=== PATIENT | female | born 1980 | race Caucasian/White ===

== ENCOUNTER 2021-02-24 15:57 | Outpatient (CLI) | payer BC | END 2021-02-24 15:58 | disposition home or self-care (01) | LOC: CTENTCT 15:57 | PROVIDERS: ATTEND Otolaryngology Plastic Surgery within the Head & Neck | DX: J32.9 Chronic sinusitis, unspecified (principal) | CPT/HCPCS: 70486 ==

== ENCOUNTER 2021-04-08 14:51 | Outpatient (CLI) | payer BC ==
[2021-04-08 15:50] LABS: BHCG - Serum Negative (NEGATIVE); Pregs Control Background? CLEAR/WHITE (CLR/WHITE); Pregs Control Bar Appear? YES (CONTROL BAR)
[2021-04-09 00:20] LABS: SARS-CoV-2 PCR by NAA Not Detected (NotDetected)
== END 2021-04-08 14:52 | disposition home or self-care (01) ==
LOC: LABBT 14:51
PROVIDERS: ATTEND Otolaryngology Plastic Surgery within the Head & Neck
DX: Z01.818 Encounter for other preprocedural examination (principal); J32.9 Chronic sinusitis, unspecified; J34.2 Deviated nasal septum; J34.89 Other specified disorders of nose and nasal sinuses; J30.9 Allergic rhinitis, unspecified; J34.3 Hypertrophy of nasal turbinates; Z20.822 Contact with and (suspected) exposure to COVID-19
CPT/HCPCS: 84703; 85014; U0003; U0005

== ENCOUNTER 2021-04-13 08:34 | Day surgery (SDC) | payer BC ==
[2021-04-12 10:06] VITALS: BMI 25.2
[2021-04-13] MEDS ORDERED: AFRIN NASAL MIST 15 ML BOT ONE ×2 (08:46→10:40)
[2021-04-13] MEDS ORDERED: Scopolamine 1.5 mg/72 hour Patch ONE (08:53)
[2021-04-13] MEDS ORDERED: Famotidine/PF 20 mg/2ml Vial ONE (08:54)
[2021-04-13] MEDS ORDERED: Lidocaine 1% w/Epinephrine 1:100K 20 ML VIAL ONE (10:40)
[2021-04-13] MEDS ORDERED: Bacitracin Zinc Ointment 30 gm TUBE ONE (10:40)
[2021-04-13] MEDS ORDERED: Fentanyl 100 MCG/2 ML VIAL ONE ×3 (10:45→12:21)
[2021-04-13] MEDS ORDERED: Dexamethasone 20 MG/5 ML VIAL ONE (11:02)
[2021-04-13] MEDS ORDERED: Metoclopramide HCl 10 MG/2 ML VIAL ONE (11:02)
[2021-04-13] MEDS ORDERED: Ondansetron PF 4 MG/2 ML Vial ONE (11:02)
[2021-04-13] MEDS ORDERED: PROPOFOL 200 MG/20 ML VIAL ONE (11:02)
[2021-04-13] MEDS ORDERED: Rocuronium Bromide 10 MG/ML (10ML VIAL) ONE (11:02)
[2021-04-13] MEDS ORDERED: diphenhydrAMINE 50 MG/ML VIAL ONE (11:02)
[2021-04-13] MEDS ORDERED: Lidocaine 1% PF 5 ML VIAL ONE (11:02)
[2021-04-13] MEDS ORDERED: SUGAMMADEX SODIUM 200 MG/2 ML VIAL ONE (11:18)
== END 2021-04-13 13:45 | disposition home or self-care (01) ==
LOC: SDC 08:34
PROVIDERS: ATTEND Otolaryngology Plastic Surgery within the Head & Neck
PROC: 099Q8ZZ Drainage of Right Maxillary Sinus, Via Natural or Artificial Opening Endoscopic (ICD-10-PCS; principal; 2021-04-13)
PROC: 09SM0ZZ Reposition Nasal Septum, Open Approach (ICD-10-PCS; principal; 2021-04-13)
PROC: 09TL0ZZ Resection of Nasal Turbinate, Open Approach (ICD-10-PCS; principal; 2021-04-13)
PROC: 099T8ZZ Drainage of Left Frontal Sinus, Via Natural or Artificial Opening Endoscopic (ICD-10-PCS; principal; 2021-04-13)
PROC: 099S8ZZ Drainage of Right Frontal Sinus, Via Natural or Artificial Opening Endoscopic (ICD-10-PCS; principal; 2021-04-13)
PROC: 099X8ZZ Drainage of Left Sphenoid Sinus, Via Natural or Artificial Opening Endoscopic (ICD-10-PCS; principal; 2021-04-13)
PROC: 09TV8ZZ Resection of Left Ethmoid Sinus, Via Natural or Artificial Opening Endoscopic (ICD-10-PCS; principal; 2021-04-13)
PROC: 09TU8ZZ Resection of Right Ethmoid Sinus, Via Natural or Artificial Opening Endoscopic (ICD-10-PCS; principal; 2021-04-13)
PROC: 099R8ZZ Drainage of Left Maxillary Sinus, Via Natural or Artificial Opening Endoscopic (ICD-10-PCS; principal; 2021-04-13)
PROC: 099W8ZZ Drainage of Right Sphenoid Sinus, Via Natural or Artificial Opening Endoscopic (ICD-10-PCS; principal; 2021-04-13)
DX: J32.9 Chronic sinusitis, unspecified (principal); J34.89 Other specified disorders of nose and nasal sinuses; J34.2 Deviated nasal septum; J34.3 Hypertrophy of nasal turbinates; J45.909 Unspecified asthma, uncomplicated; K21.9 Gastro-esophageal reflux disease without esophagitis; Z79.899 Other long term (current) drug therapy; Z88.8 Allergy status to other drugs, medicaments and biological substances
CPT/HCPCS: J1100; J1200; J2405; J2704; J2765; J3010; S0028